=== PATIENT | male | born 1935 | race Hispanic/Latino ===

== ENCOUNTER 2019-01-27 12:39 | Emergency (ER) | payer MEDICARE ==
--- NOTE | 2019-01-27 13:39 | ED PDOC ---
HPI: General Adult Time Seen by Provider: 01/27/19 13:00 Chief Complaint (Nursing): ENT Problem Chief Complaint (Provider): ENT Problem History Per: Patient History/Exam Limitations: no limitations Onset/Duration Of Symptoms: Hrs Current Symptoms Are (Timing): Still Present Additional Complaint(s): 83 year old male with a past medical history of hypertension who is presenting to the ED for evaluation of injury to nose onset just prior to arrival. Patient states that he was walking and slipped on the ice hitting nose on sidewalk. He states that fall was witnessed by his and denies any loss of consciousness. Patient reports that he was able to pick himself up and walk. He admits that he follows up with a cripple chaser in [place] and states that his heart rate is always around 40. Patient reports that all workup done in the past came back negative for need to place pacemaker. Of note, patient denies any pain and declines pain medication. PMD: Dr Kirkland in [place] Past Medical History Reviewed: Historical Data, Nursing Documentation, Vital Signs Vital Signs: Last Vital Signs Temp 98 F 01/27/19 13:02 Pulse 57 L 01/27/19 13:02 Resp 16 01/27/19 13:02 BP 148/62 01/27/19 13:02 Pulse Ox 98 01/27/19 13:02 - Medical History PMH: HTN Denies: Chronic Kidney Disease - Surgical History Surgical History: No Surg Hx - Family History Family History: States: Unknown Family Hx - Social History Current smoker - smoking cessation education provided: No Alcohol: None Drugs: Denies - Home Medications Home Medications: Ambulatory Orders Medication Instructions Recorded Amoxicillin/Clavulanate [Augmentin 1 tab PO BID #10 tab 01/27/19 500 MG-125 MG] - Allergies Allergies/Adverse Reactions: Allergies Allergy/AdvReac Type Severity Reaction Status Date / Time No Known Allergies Allergy Verified 01/27/19 12:43 Review of Systems ROS Statement: Except As Marked, All Systems Reviewed And Found Negative ENT: Positive for: Other (nasal injury ) Neurological: Negative for: Other (LOC ) Physical Exam - Reviewed Nursing Documentation Reviewed: Yes Vital Signs Reviewed: Yes - Physical Exam Appears: Positive for: Well, Non-toxic, No Acute Distress Head Exam: Positive for: ATRAUMATIC, NORMAL INSPECTION, NORMOCEPHALIC Skin: Positive for: Normal Color, Warm, DRY Eye Exam: Positive for: Normal appearance ENT: Positive for: Other (2 cm V-shaped laceration to bridge of nose, no active bleeding, no tenderness ) Neck: Positive for: Normal, Painless ROM, Supple Cardiovascular/Chest: Positive for: Bradycardia Respiratory: Positive for: Normal Breath Sounds. Negative for: Respiratory Distress Gastrointestinal/Abdominal: Positive for: Normal Exam, Soft. Negative for: Tenderness Back: Positive for: Normal Inspection. Negative for: L CVA Tenderness, R CVA Tenderness, Vertebral Tenderness Extremity: Positive for: Normal ROM. Negative for: Deformity, Swelling Neurologic/Psych: Positive for: Alert, Oriented. Negative for: Motor/Sensory Deficits - ECG O2 Sat by Pulse Oximetry: 98 (RA) Pulse Ox Interpretation: Normal Medical Decision Making Medical Decision Making: Time: 13:41 A/P: r/o bony/intracranial injury --Suture nose --Reassess patient 1400 --Patient care endorsed to Dr. Motley, pending CT scans and final disposition. Scribe Attestation: Documented by Dacia Alvarez, acting as a scribe for Monica Wagner MD. Provider Scribe Attestation: All medical record entries made by the Scribe were at my direction and personally dictated by me. I have reviewed the chart and agree that the record accurately reflects my personal performance of the history, physical exam, medical decision making, and the department course for this patient. I have also personally directed, reviewed, and agree with the discharge instructions and disposition. Procedures - Time-Out Correct Patient (with visual ID + MR# on ID Band): Yes Correct Procedure: Yes Correct Site Marked: Yes - Laceration/Wound Repair Face Wound Length (cm): 2 Wound's Depth, Shape: irregular (V-shaped ) Irrigated w/ Saline (ccs): 100 (of water) Anesthesia: Lidocaine w/ Epi (and infratrochlear nerve block) Wound Repaired With: Sutures (uninterrupted ) Suture Size/Type: 4:0, nylon Number of Sutures: 4 Wound Complexity: Simple Progress: Good approximation; no bleeding Disposition - Clinical Impression Clinical Impression: Nose fracture, Laceration of nose, Head injury - Patient ED Disposition Is Patient to be Admitted: No - Disposition Referrals: Navjot Murphy MD [Staff Provider] - (FOLLOWUP WITH YOUR ENT OR DR RYAN DENIS WITHIN A WEEK FOR FURTHER MANAGEMENT) Disposition: Transfer of Care Disposition Time: 15:00 Condition: IMPROVED Additional Instructions: STITCHES OF THE FACE ARE REMOVED IN 4-7 DAYS. PLEASE VISIT YOUR DOCTOR IN 48 HOURS FOR WOUND CHECK AND TO SCHEDULE REMOVAL TAKE ANTIBIOTICS PRESCRIBED. USE NEOSPORIN OR BACITRACIN TWICE A DAY WITH NEW BANDAGE. TAKE TYLENOL OR MOTRIN FOR PAIN. Prescriptions: Amoxicillin/Clavulanate [Augmentin 500 MG-125 MG] 1 tab PO BID #10 tab Instructions: Preventing Falls in the Older Adult, Laceration Repair With Stitches (DC), Minor Head Injury (DC), Nose Fracture (DC)
[2019-01-27] MEDS ORDERED: Lidocaine 2% w Epi 1:100,000 Inj IJ ONE (14:42)
[2019-01-27] MEDS ORDERED: Lidocaine 1% w Epi 1:100,000 Inj ONE (14:45)
[2019-01-27 15:03] VITALS: PULSE 65
[2019-01-27] MEDS ORDERED: Bacitracin 500 Units/gm Oint Foilpak UD ONE (15:09)
[2019-01-27 15:18] VITALS: O2SAT 98
[2019-01-27] MEDS ORDERED: Lidocaine/Epi 1% 1:100000 20 ML IJ ONE (15:24)
--- NOTE | 2019-01-27 15:30 | ED PDOC ---
- ECG O2 Sat by Pulse Oximetry: 98 (RA) Pulse Ox Interpretation: Normal Medical Decision Making Medical Decision Making: Time: 1400 --Patient care endorsed by Dr. Wagner, pending CTs and final disposition. Scribe Attestation: Documented by Maynor Lopez, acting as a scribe for Marii Motley MD. Provider Scribe Attestation: All medical record entries made by the Scribe were at my direction and personally dictated by me. I have reviewed the chart and agree that the record accurately reflects my personal performance of the history, physical exam, medical decision making, and the department course for this patient. I have also personally directed, reviewed, and agree with the discharge instructions and disposition. Disposition - Disposition Forms: [employer] (Sudanese)
--- NOTE | 2019-01-27 15:33 | ED PDOC ---
- ECG O2 Sat by Pulse Oximetry: 98 (RA) Pulse Ox Interpretation: Normal Medical Decision Making Medical Decision Making: Time: 1400 --Patient care endorsed to me by Dr. Wagner, pending CTs and final disposition. Accession No. : [id number] Patient Name / ID : JENNIFER BUITRAGO / [id number] Exam Date : 01/27/2019 15:20:07 ( Approved ) Study Comment : Sex / Age : M / 83Y Creator : Cole Echeverria MD Dictator : Cole Echeverria MD Tape Coater : Dam Operator : Cole Echeverria MD Approver2 : Report Date : 01/27/2019 16:26:21 My Comment : Date of service: 01/27/2019 PROCEDURE: CT MAXILLOFACIAL BONES WITHOUT CONTRAST HISTORY: fall with head trauma COMPARISON: None available. TECHNIQUE: Contiguous axial CT images of the maxillofacial bones were obtained. Coronal and sagittal reformats were generated. Radiation dose: Total exam DLP = 1576.20 mGy-cm. This CT exam was performed using one or more of the following dose reduction t echniques: Automated exposure control, adjustment of the mA and/or kV according to patient size, and/or use of iterative reconstruction technique. FINDINGS: NASAL BONES: No fracture identified. However, mild emphysematous soft tissue changes are identified at the midline and right-sided paranasal soft tissues with comminuted fracture of the distal most portion of the nasal bones bilaterally. Local soft tissue edema appears mild. Emphysema is seen to extend to the medial right periorbital soft tissue but is preseptal in location with the postseptal space normal. Trace emphysematous changes extend into the midline inferior scalp subcutaneous soft tissues as well, suggestive of laceration noted to the nose most likely. Clinically correlate. ORBITS: Trace medial emphysema preseptal soft tissue as discussed above with bilateral orbits otherwise unremarkable. PARANASAL SINUSES/ MASTOIDS: Mucoid material the bilateral maxillary sinus alveolar recesses with potential polyp at the left maxillary alveolar recess versus cyst. MAXILLA: No fracture or destructive bony lesion appreciable. MANDIBLE/ TEMPOROMANDIBULAR JOINTS: Unremarkable. SKULL BASE: Unremarkable. TEMPORAL BONES: Middle ears and mastoid grossly unremarkable. OTHER FINDINGS: None. IMPRESSION: Minimal comminuted fracture of the distal most portion of the nasal bones with emphysematous changes have mildly progressed associated with the right and midline paranasal soft tissues as well as the inferior midline frontal scalp suspicious for recent laceration. Clinically correlate further. Accession No. : [id number] Patient Name / ID : JENNIFER BUITRAGO / [id number] Exam Date : 01/27/2019 15:20:07 ( Approved ) Study Comment : Sex / Age : M / 83Y Creator : Cole Echeverria MD Dictator : Cole Echeverria MD Tape Coater : Dam Operator : Cole Echeverria MD Approver2 : Report Date : 01/27/2019 16:13:38 My Comment : Date of service: 01/27/2019 PROCEDURE: CT HEAD WITHOUT CONTRAST. HISTORY: fall with head trauma COMPARISON: None available. TECHNIQUE: Axial computed tomography images were obtained through the head/brain without intravenous contrast. Radiation dose: Total exam DLP = 1576.2 mGy-cm. This CT exam was performed using one or more of the following dose reduction techniques: Automated exposure control, adjustment of the mA and/or kV according to patient size, and/or use of iterative reconstruction technique. FINDINGS: HEMORRHAGE: No intracranial hemorrhage. BRAIN: Good corticomedullary differentiation is seen. Proportional, diffuse expansion of the ventriculosulcal and cisternal spaces is appreciated with white matter lucency compatible with diffuse cerebral atrophy and chronic microangiopathy. No suspicious extra-axial fluid collection is identified and the midline brain anatomy appears grossly nonfocal as imaged. There is no mass effect throughout. Calcific atherosclerotic changes seen at the bilateral cavernous internal carotid artery segments. VENTRICLES: Unremarkable. No hydrocephalus. CALVARIUM: No destructive bony lesion or displaced fracture identified including through the skullbase. PARANASAL SINUSES: Unremarkable as visualized. No significant inflammatory changes. Emphysematous soft tissue changes seen at the paranasal soft tissues suspicious for laceration or penetrating soft tissue injury otherwise. MASTOID AIR CELLS: Unremarkable as visualized. No inflammatory changes. OTHER FINDINGS: None. IMPRESSION: Age-related neuro degenerative change are identified with no definite acute intracranial findings appreciated. No fractures identified throughout the calvarium or skull base however there is evidence of laceration at the paranasal soft tissues near the nasal bridge. Clinically correlate further. No retained radiodense foreign body. Accession No. : [id number] Patient Name / ID : JENNIFER BUITRAGO / [id number] Exam Date : 01/27/2019 15:24:36 ( Approved ) Study Comment : Sex / Age : M / 83Y Creator : Cole Echeverria MD Dictator : Cole Echeverria MD Tape Coater : Dam Operator : Cole Echeverria MD Approver2 : Report Date : 01/27/2019 16:38:28 My Comment : This report is currently processing and HAS NOT BEEN OFFICIALLY SIGNED BY THE PHYSICIAN - ESTIMATED TIME OF APPROVAL IS 01/27/2019 16:43. Date of service: 01/27/2019 PROCEDURE: CT Cervical Spine without contrast HISTORY: fall with head trauma COMPARISON: None available. TECHNIQUE: Axial computed tomography images were obtained of the cervical spine without the use of intravenous contrast. Coronal and sagittal reformatted images were created and reviewed. Radiation dose: Total exam DLP = 376.3 mGy-cm. This CT exam was performed using one or more of the following dose reduction techniques: Automated exposure control, adjustment of the mA and/or kV according to patient size, and/or use of iterative reconstruction technique. FINDINGS: VERTEBRAE: Straightened curvature with grade 1 spondylolisthesis at C3 which is slightly anterior to C4 due to facet arthropathy. No fracture identified. Degenerative changes seen the C1-2 articulation and there is multilevel cervical spondylosis and facet joint arthropathy. Craniocervical junction appears intact. Benign cyst C3 vertebral body. DISCS/SPINAL CANAL/NEURAL FORAMINA: Gross multilevel facet joint degenerative changes as well as disc osteophyte complexes. At C2-3, there is no significant stenosis appreciated the central canal although moderate to severe severe right but no left neural foraminal stenosis is identified. This on the basis of grossly asymmetric facet and uncovertebral joint arthropathy. At C3-4, moderate severe right but no left neural foraminal stenosis appreciated due to extensive asymmetric degenerative changes with limited disc osteophyte complex and grade 1 spondylolisthesis causing borderline central stenosis. At C4-5, moderate central stenosis caused by a circumferential disc osteophyte complex with moderate bilateral neural foraminal stenosis appreciated on degenerative basis. At C5-6, moderate right and moderate to severe left degenerative neural foraminal stenosis appreciate with a mild central stenosis due to degenerative disc osteophyte and uncovertebral/facet joint arthropathy. At C6-7, there is a moderate to severe central stenosis caused by circumferential disc osteophyte complex with mild right and [id number] left degenerative neural foraminal stenosis present. At C7-T1, no stenosis appreciable. No gross disc herniation appreciated throughout the exam. MRI is more sensitive in evaluation of intervertebral discs as clinically warranted. PARASPINAL SOFT TISSUES: Unremarkable. OTHER FINDINGS: None. IMPRESSION: Advanced multilevel degenerative facet and uncovertebral joint arthropathy and multilevel disc osteophyte complexes are identified causing variable central canal and neural foraminal stenoses seen worst at the C6-7 level where moderate to severe central stenosis results. Right greater than left neural foraminal stenosis appreciated multiple levels on a degenerative basis. Straightened cervical curvature without fracture or traumatic spondylolisthesis evident. Degenerative grade 1 spondylolisthesis is noted at C3-4. Scribe Attestation: Documented by Maynor Lopez, acting as a scribe for Marii Motley MD. Provider Scribe Attestation: All medical record entries made by the Scribe were at my direction and pers onally dictated by me. I have reviewed the chart and agree that the record accurately reflects my personal performance of the history, physical exam, medical decision making, and the department course for this patient. I have also personally directed, reviewed, and agree with the discharge instructions and disposition. Disposition Counseled Patient/Family Regarding: Studies Performed, Diagnosis, Need For Followup, Rx Given - Clinical Impression Clinical Impression: Nose fracture, Laceration of nose, Head injury - POA Present On Arrival: Falls Or Trauma - Disposition Referrals: Navjot Barragan MD [Staff Provider] - (FOLLOWUP WITH YOUR ENT OR DR BARRAGAN WITHIN A WEEK FOR FURTHER MANAGEMENT) Disposition: Routine/Home Disposition Time: 16:37 Condition: IMPROVED Additional Instructions: STITCHES OF THE FACE ARE REMOVED IN 4-7 DAYS. PLEASE VISIT YOUR DOCTOR IN 48 HOURS FOR WOUND CHECK AND TO SCHEDULE REMOVAL TAKE ANTIBIOTICS PRESCRIBED. USE NEOSPORIN OR BACITRACIN TWICE A DAY WITH NEW BANDAGE. TAKE TYLENOL OR MOTRIN FOR PAIN. Prescriptions: Amoxicillin/Clavulanate [Augmentin 500 MG-125 MG] 1 tab PO BID #10 tab Instructions: Preventing Falls in the Older Adult, Laceration Repair With Stitches (DC), Minor Head Injury (DC), Nose Fracture (DC)
--- NOTE | 2019-01-27 16:16 | CT ---
Date of service: 01/27/2019 PROCEDURE: CT HEAD WITHOUT CONTRAST. HISTORY: fall with head trauma COMPARISON: None available. TECHNIQUE: Axial computed tomography images were obtained through the head/brain without intravenous contrast. Radiation dose: Total exam DLP = 1576.2 mGy-cm. This CT exam was performed using one or more of the following dose reduction techniques: Automated exposure control, adjustment of the mA and/or kV according to patient size, and/or use of iterative reconstruction technique. FINDINGS: HEMORRHAGE: No intracranial hemorrhage. BRAIN: Good corticomedullary differentiation is seen. Proportional, diffuse expansion of the ventriculosulcal and cisternal spaces is appreciated with white matter lucency compatible with diffuse cerebral atrophy and chronic microangiopathy. No suspicious extra-axial fluid collection is identified and the midline brain anatomy appears grossly nonfocal as imaged. There is no mass effect throughout. Calcific atherosclerotic changes seen at the bilateral cavernous internal carotid artery segments. VENTRICLES: Unremarkable. No hydrocephalus. CALVARIUM: No destructive bony lesion or displaced fracture identified including through the skullbase. PARANASAL SINUSES: Unremarkable as visualized. No significant inflammatory changes. Emphysematous soft tissue changes seen at the paranasal soft tissues suspicious for laceration or penetrating soft tissue injury otherwise. MASTOID AIR CELLS: Unremarkable as visualized. No inflammatory changes. OTHER FINDINGS: None. IMPRESSION: Age-related neuro degenerative change are identified with no definite acute intracranial findings appreciated. No fractures identified throughout the calvarium or skull base however there is evidence of laceration at the paranasal soft tissues near the nasal bridge. Clinically correlate further. No retained radiodense foreign body.
--- NOTE | 2019-01-27 16:30 | CT ---
Date of service: 01/27/2019 PROCEDURE: CT MAXILLOFACIAL BONES WITHOUT CONTRAST HISTORY: fall with head trauma COMPARISON: None available. TECHNIQUE: Contiguous axial CT images of the maxillofacial bones were obtained. Coronal and sagittal reformats were generated. Radiation dose: Total exam DLP = 1576.20 mGy-cm. This CT exam was performed using one or more of the following dose reduction techniques: Automated exposure control, adjustment of the mA and/or kV according to patient size, and/or use of iterative reconstruction technique. FINDINGS: NASAL BONES: No fracture identified. However, mild emphysematous soft tissue changes are identified at the midline and right-sided paranasal soft tissues with comminuted fracture of the distal most portion of the nasal bones bilaterally. Local soft tissue edema appears mild. Emphysema is seen to extend to the medial right periorbital soft tissue but is preseptal in location with the postseptal space normal. Trace emphysematous changes extend into the midline inferior scalp subcutaneous soft tissues as well, suggestive of laceration noted to the nose most likely. Clinically correlate. ORBITS: Trace medial emphysema preseptal soft tissue as discussed above with bilateral orbits otherwise unremarkable. PARANASAL SINUSES/ MASTOIDS: Mucoid material the bilateral maxillary sinus alveolar recesses with potential polyp at the left maxillary alveolar recess versus cyst. MAXILLA: No fracture or destructive bony lesion appreciable. MANDIBLE/ TEMPOROMANDIBULAR JOINTS: Unremarkable. SKULL BASE: Unremarkable. TEMPORAL BONES: Middle ears and mastoid grossly unremarkable. OTHER FINDINGS: None. IMPRESSION: Minimal comminuted fracture of the distal most portion of the nasal bones with emphysematous changes have mildly progressed associated with the right and midline paranasal soft tissues as well as the inferior midline frontal scalp suspicious for recent laceration. Clinically correlate further.
[2019-01-27] MEDS ORDERED: Tetanus/Diphtheria Toxoids 0.5 ml Syringe IM ONE ×2 (16:31→16:34)
--- NOTE | 2019-01-27 16:41 | CT ---
Date of service: 01/27/2019 PROCEDURE: CT Cervical Spine without contrast HISTORY: fall with head trauma COMPARISON: None available. TECHNIQUE: Axial computed tomography images were obtained of the cervical spine without the use of intravenous contrast. Coronal and sagittal reformatted images were created and reviewed. Radiation dose: Total exam DLP = 376.3 mGy-cm. This CT exam was performed using one or more of the following dose reduction techniques: Automated exposure control, adjustment of the mA and/or kV according to patient size, and/or use of iterative reconstruction technique. FINDINGS: VERTEBRAE: Straightened curvature with grade 1 spondylolisthesis at C3 which is slightly anterior to C4 due to facet arthropathy. No fracture identified. Degenerative changes seen the C1-2 articulation and there is multilevel cervical spondylosis and facet joint arthropathy. Craniocervical junction appears intact. Benign cyst C3 vertebral body. DISCS/SPINAL CANAL/NEURAL FORAMINA: Gross multilevel facet joint degenerative changes as well as disc osteophyte complexes. At C2-3, there is no significant stenosis appreciated the central canal although moderate to severe severe right but no left neural foraminal stenosis is identified. This on the basis of grossly asymmetric facet and uncovertebral joint arthropathy. At C3-4, moderate severe right but no left neural foraminal stenosis appreciated due to extensive asymmetric degenerative changes with limited disc osteophyte complex and grade 1 spondylolisthesis causing borderline central stenosis. At C4-5, moderate central stenosis caused by a circumferential disc osteophyte complex with moderate bilateral neural foraminal stenosis appreciated on degenerative basis. At C5-6, moderate right and moderate to severe left degenerative neural foraminal stenosis appreciate with a mild central stenosis due to degenerative disc osteophyte and uncovertebral/facet joint arthropathy. At C6-7, there is a moderate to severe central stenosis caused by circumferential disc osteophyte complex with mild right and ilbj-[id number] left degenerative neural foraminal stenosis present. At C7-T1, no stenosis appreciable. No gross disc herniation appreciated throughout the exam. MRI is more sensitive in evaluation of intervertebral discs as clinically warranted. PARASPINAL SOFT TISSUES: Unremarkable. OTHER FINDINGS: None. IMPRESSION: Advanced multilevel degenerative facet and uncovertebral joint arthropathy and multilevel disc osteophyte complexes are identified causing variable central canal and neural foraminal stenoses seen worst at the C6-7 level where moderate to severe central stenosis results. Right greater than left neural foraminal stenosis appreciated multiple levels on a degenerative basis. Straightened cervical curvature without fracture or traumatic spondylolisthesis evident. Degenerative grade 1 spondylolisthesis is noted at C3-4.
[2019-01-27 16:51] VITALS: BP 127/103; RESP 20; TEMP 98.8
== END 2019-01-27 16:50 | disposition home or self-care (01) ==
LOC: H.ER 12:39
DX: S01.21XA Laceration without foreign body of nose, initial encounter (principal); S02.2XXA Fracture of nasal bones, initial encounter for closed fracture; S09.90XA Unspecified injury of head, initial encounter; W00.0XXA Fall on same level due to ice and snow, initial encounter; Y92.89 Other specified places as the place of occurrence of the external cause; I10 Essential (primary) hypertension; M48.02 Spinal stenosis, cervical region